=== PATIENT | female | born 1955 | race Caucasian/White ===

== ENCOUNTER 2021-05-27 12:11 | Emergency (ER) | payer OTHER ==
[~2021-05-27 12:11] MED LIST: COMBIVENT0.074 GM/I INH; MEDROL4 MG PO; ROBITUSSIN DM UD5 ML PO; VENTOLIN HFA 66.7 GM INH; VIBRAMYCIN100 MG PO
[2021-05-27 15:17] LABS: HEMOGLOBIN 13.3 gm/dl (12.3-15.3); RED BLOOD COUNT 4.63 M/UL (4.00-5.10); WHITE BLOOD COUNT 11.6 K/UL (4.5-11.0)
[2021-05-27 15:51] LABS: BUN/CREATININE RATIO 28 (0-10)
== END 2021-05-27 20:05 | disposition home or self-care (01) ==
LOC: ER1 12:11
PROVIDERS: Family Medicine
DX: R07.9 Chest pain, unspecified (principal)
CPT/HCPCS: 71046; 80053; 82550; 82553; 83874; 83880; 84484; 85025; 85379; 93005; 93242; 99285; Q9967

== ENCOUNTER 2021-06-06 18:31 | Inpatient (IN) | payer OTHER ==
[~2021-06-06] VITALS: Ht 160 cm; Wt 55.8 kg
[~2021-06-06 18:31] MED LIST changes: +DEXAMETHASONE6 MG PO; +DOXYCYCLINE HY100 MG PO; +ONDANSETRON ODT4 MG PO
[2021-06-06 19:37] LABS: HEMOGLOBIN 12.3 gm/dl (12.3-15.3); RED BLOOD COUNT 4.19 M/UL (4.00-5.10); WHITE BLOOD COUNT 7.1 K/UL (4.5-11.0)
[2021-06-06 20:13] LABS: BUN/CREATININE RATIO 26 (0-10)
[2021-06-07 03:04] LABS: HEMOGLOBIN 12.1 gm/dl (12.3-15.3); RED BLOOD COUNT 4.02 M/UL (4.00-5.10); WHITE BLOOD COUNT 5.9 K/UL (4.5-11.0)
[2021-06-07 03:34] LABS: BUN/CREATININE RATIO 20 (0-10)
[2021-06-07] MEDS ORDERED: FENOFIBRATE145 MG PO (13:23)
[2021-06-07] MEDS ORDERED: ADVIL200 MG PO (13:24)
[2021-06-08 02:47] LABS: HEMOGLOBIN 11.5 gm/dl (12.3-15.3); RED BLOOD COUNT 3.92 M/UL (4.00-5.10); WHITE BLOOD COUNT 5.2 K/UL (4.5-11.0)
[2021-06-08 03:53] LABS: BUN/CREATININE RATIO 21 (0-10)
[2021-06-09 06:40] LABS: HEMOGLOBIN 11.6 gm/dl (12.3-15.3); RED BLOOD COUNT 3.88 M/UL (4.00-5.10)
[2021-06-09 06:50] LABS: WHITE BLOOD COUNT 9.9 K/UL (4.5-11.0)
[2021-06-09 07:21] LABS: BUN/CREATININE RATIO 30 (0-10)
[2021-06-10 05:20] LABS: HEMOGLOBIN 11.5 gm/dl (12.3-15.3); RED BLOOD COUNT 3.84 M/UL (4.00-5.10); WHITE BLOOD COUNT 8.8 K/UL (4.5-11.0)
[2021-06-10 05:38] LABS: BUN/CREATININE RATIO 30 (0-10)
[2021-06-10] MEDS ORDERED: ELIQUIS2.5 MG PO (10:52)
[2021-06-10] MEDS ORDERED: IPRAT-ALBUT 0.5-3 ML NEB (10:52)
[2021-06-10] MEDS ORDERED: BUDESONIDE0.5 MG/2 M NEB (10:52)
[2021-06-10] MEDS ORDERED: OMNICEF 300 MG300 MG PO (12:47)
--- NOTE | 2021-06-10 16:36 | NUR ---
PT DECLINED FLU VACCINE
== END 2021-06-10 19:52 | disposition home or self-care (01) | DRG 177 ==
LOC: ER1 18:31 → CDU 20:52 → MED SURG 4 20:52
PROVIDERS: Emergency Medicine; Internal Medicine; ADMIT Internal Medicine
PROC: XW033E5 Introduction of Remdesivir Anti-infective into Peripheral Vein, Percutaneous Approach, New Technology Group 5 (ICD-10-PCS; principal; 2021-06-07)
PROC: 3E0333Z Introduction of Anti-inflammatory into Peripheral Vein, Percutaneous Approach (ICD-10-PCS; 2021-06-07)
PROC: 8E0ZXY6 Isolation (ICD-10-PCS; 2021-06-07)
DX: U07.1 COVID-19 (principal); J12.82 Pneumonia due to coronavirus disease 2019; J96.01 Acute respiratory failure with hypoxia; E87.1 Hypo-osmolality and hyponatremia; F17.210 Nicotine dependence, cigarettes, uncomplicated; E87.6 Hypokalemia; I45.10 Unspecified right bundle-branch block; J44.9 Chronic obstructive pulmonary disease, unspecified; Z79.01 Long term (current) use of anticoagulants; Z87.59 Personal history of other complications of pregnancy, childbirth and the puerperium
CPT/HCPCS: 36415; 36600; 71045; 80048; 80053; 82550; 82553; 82728; 82803; 83874; 84484; 85025; 85027; 85652; 93005; 94640; 94664; 94760; 96374; 99285; G0378; J0456; J1100; J1650; J2405; J3480; J7030

== ENCOUNTER 2021-06-27 11:05 | Emergency (ER) | payer OTHER ==
[~2021-06-27 11:05] MED LIST changes: +ADVIL200 MG PO; +BUDESONIDE0.5 MG/2 M NEB; +ELIQUIS2.5 MG PO; +FENOFIBRATE145 MG PO; +IPRAT-ALBUT 0.5-3 ML NEB; +OMNICEF 300 MG300 MG PO
[2021-06-27 12:09] LABS: HEMOGLOBIN 11.8 gm/dl (12.3-15.3); RED BLOOD COUNT 3.87 M/UL (4.00-5.10); WHITE BLOOD COUNT 6.3 K/UL (4.5-11.0)
[2021-06-27 12:27] LABS: BUN/CREATININE RATIO 14 (0-10)
[2021-06-27] MEDS ORDERED: AUGMENTIN 875-1 EACH PO (16:05)
[2021-06-27] MEDS ORDERED: PREDNISONE 20 M20 MG GT (16:05)
== END 2021-06-27 16:18 | disposition home or self-care (01) ==
LOC: ER1 11:05
PROVIDERS: Nurse Practitioner
DX: J44.1 Chronic obstructive pulmonary disease with (acute) exacerbation (principal); E78.5 Hyperlipidemia, unspecified; Z79.899 Other long term (current) drug therapy; Z87.891 Personal history of nicotine dependence
CPT/HCPCS: 36600; 71045; 80053; 82550; 82553; 82803; 83874; 83880; 84484; 85025; 85379; 93005; 94664; 94760; 99285

== ENCOUNTER 2021-07-04 12:14 | Inpatient (IN) | payer OTHER ==
[~2021-07-04] VITALS: Ht 160 cm; Wt 53.1 kg
[~2021-07-04 12:14] MED LIST changes: +AUGMENTIN 875-1 EACH PO; +PREDNISONE 20 M20 MG GT
[2021-07-04 12:54] LABS: HEMOGLOBIN 13.6 gm/dl (12.3-15.3); RED BLOOD COUNT 4.42 M/UL (4.00-5.10); WHITE BLOOD COUNT 10.2 K/UL (4.5-11.0)
[2021-07-04 13:38] LABS: BUN/CREATININE RATIO 21 (0-10)
[2021-07-04] MEDS ORDERED: IPRAT-ALBUT 0.5-3 ML INH (14:57)
[2021-07-04] MEDS ORDERED: SYMBICORT 16010.2 GM INH (14:58)
[2021-07-04] MEDS ORDERED: AMOX TR-K CLV1 EAC4 PO (15:06)
[2021-07-04] MEDS ORDERED: PROVENTIL HFA6.7 GM INH (15:07)
[2021-07-05 11:11] LABS: HEMOGLOBIN 11.9 gm/dl (12.3-15.3)
[2021-07-05 11:13] LABS: RED BLOOD COUNT 3.87 M/UL (4.00-5.10)
[2021-07-05 11:32] LABS: BUN/CREATININE RATIO 36 (0-10)
[2021-07-06] MEDS ORDERED: MEDROL DOSEPAK 24 MG PO (11:19)
== END 2021-07-06 16:00 | disposition home or self-care (01) | DRG 189 ==
LOC: ER1 12:14 → M/S 14:00 → CDU 14:00 → M/S 18:51
PROVIDERS: Physician Assistant; ADMIT Internal Medicine Infectious Disease
DX: J96.01 Acute respiratory failure with hypoxia (principal); J45.901 Unspecified asthma with (acute) exacerbation; J44.1 Chronic obstructive pulmonary disease with (acute) exacerbation; Z20.822 Contact with and (suspected) exposure to COVID-19; F17.210 Nicotine dependence, cigarettes, uncomplicated; Z87.59 Personal history of other complications of pregnancy, childbirth and the puerperium; Z80.8 Family history of malignant neoplasm of other organs or systems
CPT/HCPCS: 36600; 71045; 80048; 80053; 82550; 82553; 82803; 83605; 83735; 83874; 83880; 84484; 85025; 85379; 87040; 93005; 94640; 94760; 96374; 96375; 99285; J1650; J2920; J2930; U0002

== ENCOUNTER → 2021-07-16 | Outpatient (CLI) | payer OTHER ==
[~2021-07-16] MED LIST changes: +AMOX TR-K CLV1 EAC4 PO; +IPRAT-ALBUT 0.5-3 ML INH; +MEDROL DOSEPAK 24 MG PO; +PROVENTIL HFA6.7 GM INH; +SYMBICORT 16010.2 GM INH
[2021-07-16 13:04] LABS: HEMOGLOBIN 12.7 gm/dl (12.3-15.3); RED BLOOD COUNT 4.15 M/UL (4.00-5.10); WHITE BLOOD COUNT 9.7 K/UL (4.5-11.0)
[2021-07-16 13:33] LABS: BUN/CREATININE RATIO 23 (0-10)
== END ==
LOC: LAB 12:02
PROVIDERS: Nurse Practitioner Family
DX: E78.5 Hyperlipidemia, unspecified (principal); E03.9 Hypothyroidism, unspecified; E55.9 Vitamin D deficiency, unspecified
CPT/HCPCS: 36415; 80053; 80061; 82607; 84439; 84443; 85025

== ENCOUNTER → 2021-07-24 | Outpatient (CLI) | payer OTHER | LOC: HEART 5 15:16 | DX: J45.40 Moderate persistent asthma, uncomplicated (principal) | CPT/HCPCS: 94060; 94729; 95012 ==

== ENCOUNTER 2021-12-28 00:55 | Observation (INO) | payer OTHER ==
[~2021-12-28] VITALS: Ht 160 cm; Wt 82.1 kg
[~2021-12-28 00:55] MED LIST changes: -PROVENTIL HFA6.7 GM INH
[2021-12-28 01:26] LABS: HEMOGLOBIN 12.1 gm/dl (12.3-15.3); RED BLOOD COUNT 4.12 M/UL (4.00-5.10)
[2021-12-28 01:46] LABS: BUN/CREATININE RATIO 22 (0-10)
[2021-12-28] MEDS ORDERED: SINGULAIR10 MG PO (08:15)
[2021-12-28] MEDS ORDERED: TRICOR 145 MG145 MG PO (08:16)
[2021-12-28] MEDS ORDERED: MOTRIN IB200 MG PO (08:17)
[2021-12-28] MEDS ORDERED: FAMOTIDINE20 MG PO (14:20)
[2021-12-28] MEDS ORDERED: PROVENTIL HFA6.7 GM INH (15:07)
== END 2021-12-28 15:07 | disposition home or self-care (01) ==
LOC: ER1 00:55 → CDU 02:18
PROVIDERS: Physician Assistant; ADMIT Internal Medicine
DX: R07.89 Other chest pain (principal); J45.909 Unspecified asthma, uncomplicated; E78.5 Hyperlipidemia, unspecified; J44.9 Chronic obstructive pulmonary disease, unspecified; R11.10 Vomiting, unspecified; E87.6 Hypokalemia; Z86.16 Personal history of COVID-19; Z87.891 Personal history of nicotine dependence; Z82.49 Family history of ischemic heart disease and other diseases of the circulatory system; Z88.2 Allergy status to sulfonamides; Z20.822 Contact with and (suspected) exposure to COVID-19
CPT/HCPCS: ECHO; 71045; 80053; 80061; 81001; 82306; 82550; 82553; 83036; 83690; 83735; 84100; 84484; 84550; 85025; 93005; 93306; 99285; G0378; J2785; U0002

== ENCOUNTER → 2022-05-13 | Outpatient (CLI) | payer OTHER ==
[~2022-05-13] MED LIST changes: +FAMOTIDINE20 MG PO; +MOTRIN IB200 MG PO; +PROVENTIL HFA6.7 GM INH; +SINGULAIR10 MG PO; +TRICOR 145 MG145 MG PO
== END ==
LOC: KOH-I 09:30
DX: Z87.891 Personal history of nicotine dependence (principal)
CPT/HCPCS: 71271